=== PATIENT | male | born 1995 | race African-American/Black ===

== ENCOUNTER 2018-04-07 06:25 | Emergency (ER) | payer SELFPAY ==
[~2018-04-07] VITALS: Ht 175.3 cm; Wt 63.5 kg
[2018-04-07 06:28] VITALS: BP 120/86
[2018-04-07 07:17] LABS: CLARITY URINE CLEAR (CLEAR); COLOR URINE YELLOW (YELLOW); KETONES URINE NEGATIVE (NEGATIVE); LEUKOCYTE ESTERASE URINE NEGATIVE (NEGATIVE); NITRITE URINE NEGATIVE (NEGATIVE); OCCULT BLOOD URINE NEGATIVE (NEGATIVE); PROTEIN URINE NEGATIVE (NEGATIVE); SPECIFIC GRAVITY URINE 1.022 (1.005-1.030)
== END 2018-04-07 09:35 | disposition left against medical advice (07) ==
LOC: ER 07:21
DX: R10.9 Unspecified abdominal pain (principal); Z53.21 Procedure and treatment not carried out due to patient leaving prior to being seen by health care provider